=== PATIENT | female | born 1940 | race Caucasian/White ===

== ENCOUNTER 2016-10-28 22:25 | Emergency (ER) | payer MEDICARE, MEDICAID ==
[~2016-10-28] VITALS: Ht 162.6 cm; Wt 86.0 kg
[2016-10-28] MEDS ORDERED: ENALAPRIL 2.5MG/2ML VIAL 2ML IV ONE (23:15)
[2016-10-28 23:59] LABS: BASOPHILS % 0.8 % (0.0-2.0); EOSINOPHILS % 4.6 % (0.0-5.0); HEMATOCRIT. 37.2 % (36.0-48.0); HEMOGLOBIN. 12.5 g/dL (12.0-16.0); LYMPHOCYTES % 31.3 % (20.0-50.0); MEAN CORPUSCULAR HEMOGLOBIN 29.7 pg (28.0-32.0); MEAN CORPUSCULAR VOLUME 88.2 fL (81.0-99.0); MEAN PLATELET VOLUME 7.6 fl (7.4-10.4); NEUTROPHILS % 54.3 % (40.0-76.0); PLATELET 186 x1000/uL (130-400); RED BLOOD CELL COUNT 4.22 mill/uL (4.2-5.4); RED CELL DISTRIBUTION WIDTH 14.9 % (11.6-14.6)
[2016-10-29 00:05] LABS: CHLORIDE 100 mEq/L (98-107)
[2016-10-29 00:15] LABS: CARBON DIOXIDE 24 mEq/L (21-32)
[2016-10-29 01:46] VITALS: BP 147/64
== END 2016-10-29 01:58 | disposition home or self-care (01) ==
LOC: ER 22:32
DX: I10 Essential (primary) hypertension (principal); M19.90 Unspecified osteoarthritis, unspecified site; Z90.49 Acquired absence of other specified parts of digestive tract; Z98.890 Other specified postprocedural states
CPT/HCPCS: 36415; 70450; 71010; 80053; 85025; 93005; 96374; 99285; J3490

== ENCOUNTER 2017-06-18 20:34 | Emergency (ER) | payer MEDICARE, MEDICAID ==
[~2017-06-18] VITALS: Ht 165.1 cm; Wt 85.0 kg
[2017-06-19] MEDS ORDERED: MAGNESIUM/ALUMINUM HYDROXIDE/SIMETHICONE 30ML UDC PO STA (00:26)
[2017-06-19] MEDS ORDERED: VISCOUS LIDOCAINE 2% 15 ML UDC PO STA (00:26)
[2017-06-19] MEDS ORDERED: PANTOPRAZOLE SODIUM 40 MG/VIAL IV STA (00:26)
[2017-06-19] MEDS ORDERED: ONDANSETRON HCL 4MG/2ML VIAL IV STA (00:26)
[2017-06-19 00:50] LABS: BASOPHILS % 0.2 % (0.0-2.0); EOSINOPHILS % 0.5 % (0.0-5.0); HEMOGLOBIN. 13.1 g/dL (12.0-16.0); LYMPHOCYTES % 7.4 % (20.0-50.0); MEAN CORPUSCULAR HEMOGLOBIN 30.4 pg (28.0-32.0); MONOCYTES % 6.8 % (2.0-8.0); NEUTROPHILS % 85.1 % (40.0-76.0); PLATELET 219 x1000/uL (130-400); RED BLOOD CELL COUNT 4.32 mill/uL (4.2-5.4)
[2017-06-19 00:52] LABS: CHLORIDE 100 mEq/L (98-107)
[2017-06-19 00:56] LABS: PROTHROMBIN TIME 10.9 sec (9.4-11.6)
[2017-06-19 04:28] VITALS: BP 123/44
== END 2017-06-19 05:10 | disposition home or self-care (01) ==
LOC: ER 21:10
DX: R42 Dizziness and giddiness (principal); R11.2 Nausea with vomiting, unspecified; R10.9 Unspecified abdominal pain; I10 Essential (primary) hypertension; Z96.652 Presence of left artificial knee joint
CPT/HCPCS: 36415; 70450; 71045; 74176; 80053; 83690; 85025; 85610; 96374; 96375; 99285; C9113; J2405